=== PATIENT | female | born 1960 | race Caucasian/White ===

== ENCOUNTER 2021-03-30 11:58 | Emergency (ER) | payer MEDICARE, OTHER ==
[~2021-03-30 11:58] MED LIST: COZAAR 25MG TAB25 MG PO; CYMBALTA20 MG PO; ELAVIL50 MG PO; GEODON80 MG PO; HCTZ25 MG PO; KLONOPIN1 MG PO; LASIX20 MG PO; LOPRESSOR25 MG PO; METFORMIN HCL500 MG PO; MOTRIN600 MG PO; NEURONTIN100 MG PO; NYSTATIN SUSP1 ML/ML SSP; PERCOCET 5-3251 EACH PO; PREDNISONE 20MG20 MG PO; PRILOSEC20 MG PO; PROMETHAZINE-D118 ML PO; SYNTHROID25 MCG PO; VENTOLIN HFA IN18 GM INH; VISTARIL25 MG PO
[2021-03-30 15:24] LABS: BASOPHIL 0.3 % (0-2); EOSINOPHIL 0.9 % (0-5); HCT 41.9 % (37.0-47.0); HGB 13.5 g/dl (12.5-16.0); LYMPHOCYTE 29.3 % (15-48); MCH 28.8 pg (25.0-31.0); MCHC 32.2 g/dL (32.0-36.0); MCV 89.3 fL (78.0-100.0); MONOCYTE 5.1 % (0-12); MPV 9.4 fL (6.0-9.5); NEUTROPHIL 64.1 % (41-80); NRBC 0; PLT 257 K/uL (150-400); RBC 4.69 M/uL (4.20-5.40); RDW 14.6 % (11.5-14.0); WBC 11.8 K/uL (4.0-10.5)
[2021-03-30 15:52] LABS: ALBUMIN 3.6 g/dL (3.4-5.0); BILIRUBIN - TOTAL 0.3 mg/dL (0.2-1.0); BUN/CREAT RATIO (CALC) 10.3 RATIO; CREATININE 0.97 mg/dL (0.51-0.95); GLOBULIN (CALCULATION) 3.8 g/dL; POTASSIUM 3.2 mmol/L (3.5-5.1); TOTAL PROTEIN 7.4 g/dL (6.4-8.2)
[2021-03-30] MEDS ORDERED: NORCO 5-325 TA1 EACH PO ×2 (17:04→17:07)
== END 2021-03-30 17:25 | disposition home or self-care (01) ==
LOC: FER 11:58
PROVIDERS: Emergency Medicine
DX: M54.89 Other dorsalgia (principal); E11.9 Type 2 diabetes mellitus without complications; J44.9 Chronic obstructive pulmonary disease, unspecified; F17.200 Nicotine dependence, unspecified, uncomplicated; Z79.899 Other long term (current) drug therapy; Z88.2 Allergy status to sulfonamides; Z88.5 Allergy status to narcotic agent
CPT/HCPCS: 36415; 71046; 80053; 85025; J1885

== ENCOUNTER 2021-04-14 18:16 | Emergency (ER) | payer MEDICARE, OTHER ==
[~2021-04-14 18:16] MED LIST changes: +NORCO 5-325 TA1 EACH PO
[2021-04-14 19:01] LABS: BASOPHIL 0.4 % (0-2); EOSINOPHIL 1.5 % (0-5); HCT 38.3 % (37.0-47.0); HGB 12.3 g/dl (12.5-16.0); LYMPHOCYTE 46.7 % (15-48); MCH 28.8 pg (25.0-31.0); MCHC 32.1 g/dL (32.0-36.0); MCV 89.7 fL (78.0-100.0); MONOCYTE 6.5 % (0-12); MPV 9.7 fL (6.0-9.5); NEUTROPHIL 44.4 % (41-80); NRBC 0; PLT 301 K/uL (150-400); RBC 4.27 M/uL (4.20-5.40); RDW 13.9 % (11.5-14.0); WBC 7.8 K/uL (4.0-10.5)
[2021-04-14 19:33] LABS: POTASSIUM 3.2 mmol/L (3.5-5.1)
[2021-04-14 19:35] LABS: CORONAVIRUS 2019 SARS-COV-2 NEGATIVE (NEGATIVE); INFLUENZA A NAA NEGATIVE (NEGATIVE)
[2021-04-14] MEDS ORDERED: MEDROL 4MG DOSEP4 MG PO (21:04)
[2021-04-14] MEDS ORDERED: NORCO 5-325 TA1 EACH PO (21:04)
== END 2021-04-14 21:48 | disposition home or self-care (01) ==
LOC: FER 18:16
PROVIDERS: Nurse Practitioner Family
DX: R07.89 Other chest pain (principal); E11.9 Type 2 diabetes mellitus without complications; J44.9 Chronic obstructive pulmonary disease, unspecified; I10 Essential (primary) hypertension; F17.210 Nicotine dependence, cigarettes, uncomplicated; Z20.822 Contact with and (suspected) exposure to COVID-19; Z88.2 Allergy status to sulfonamides; Z88.5 Allergy status to narcotic agent
CPT/HCPCS: 36415; 71046; 71275; 80048; 83880; 84484; 85025; 85379; 93005; J1170; J2405; Q9967; U0002

== ENCOUNTER 2021-04-29 16:18 | Emergency (ER) | payer MEDICARE, OTHER ==
[~2021-04-29 16:18] MED LIST changes: +MEDROL 4MG DOSEP4 MG PO
[2021-04-29 17:55] LABS: BASOPHIL 0.2 % (0-2); EOSINOPHIL 0.8 % (0-5); HCT 38.3 % (37.0-47.0); HGB 12.4 g/dl (12.5-16.0); LYMPHOCYTE 44.3 % (15-48); MCH 28.8 pg (25.0-31.0); MCHC 32.4 g/dL (32.0-36.0); MCV 89.1 fL (78.0-100.0); MONOCYTE 6.7 % (0-12); MPV 9.5 fL (6.0-9.5); NEUTROPHIL 47.9 % (41-80); NRBC 0; PLT 273 K/uL (150-400); WBC 8.3 K/uL (4.0-10.5)
[2021-04-29 18:04] LABS: ALBUMIN 3.3 g/dL (3.4-5.0); BILIRUBIN - TOTAL 0.4 mg/dL (0.2-1.0); BUN/CREAT RATIO (CALC) 12.9 RATIO; CREATININE 0.85 mg/dL (0.51-0.95); GLOBULIN (CALCULATION) 3.1 g/dL; POTASSIUM 3.6 mmol/L (3.5-5.1); TOTAL PROTEIN 6.4 g/dL (6.4-8.2)
[2021-04-29 18:35] LABS: BILIRUBIN NEGATIVE (NEGATIVE); BLOOD NEGATIVE Ery/uL (NEGATIVE); CLARITY CLEAR (CLEAR); COLOR YELLOW (YELLOW); GLUCOSE (U) NORMAL (NORMAL); LEUKOCYTES NEGATIVE Leu/uL (NEGATIVE); NITRITE NEGATIVE (NEGATIVE); PROTEIN NEGATIVE (NEGATIVE); UROBILINOGEN 0.2 mg/dL (0.2-1.0); pH 8.5 (5.0-9.0)
[2021-04-29] MEDS ORDERED: LIDODERM PATCH 51 EA TOP (18:59)
[2021-04-29] MEDS ORDERED: NORCO 5-325 TA1 EACH PO (18:59)
== END 2021-04-29 19:40 | disposition home or self-care (01) ==
LOC: FER 16:18
PROVIDERS: Emergency Medicine
DX: R07.89 Other chest pain (principal); R10.9 Unspecified abdominal pain; I12.9 Hypertensive chronic kidney disease with stage 1 through stage 4 chronic kidney disease, or unspecified chronic kidney disease; E11.22 Type 2 diabetes mellitus with diabetic chronic kidney disease; N18.30 Chronic kidney disease, stage 3 unspecified; F17.210 Nicotine dependence, cigarettes, uncomplicated; Z88.2 Allergy status to sulfonamides; Z88.5 Allergy status to narcotic agent
CPT/HCPCS: 36415; 71250; 80053; 81003; 82550; 83690; 84484; 85025; 93005